=== PATIENT | female | born 1945 | race Hispanic/Latino ===

== ENCOUNTER → 2017-05-28 | Outpatient (CLI) | payer OTHER ==
[~2017-05-28] MED LIST: ALEN70TA47 PO; ASCO10007 PO; ASPI-555 PO; CHOL200074 PO; DILT120C92 PO; FERR-82 PO; LEVO100T12 PO; METF10004 PO; OMEG-96 PO; ONDA8TAB12 PO; PRAV80TA21 PO; RAMI10CA23 PO; TRAM50TA4 PO
== END | disposition home or self-care (01) ==
LOC: RAH 13:32
PROVIDERS: ATTEND Family Medicine
DX: Z12.31 Encounter for screening mammogram for malignant neoplasm of breast (principal)
CPT/HCPCS: 77067

== ENCOUNTER 2017-07-08 07:57 | Day surgery (SDC) | payer OTHER ==
[~2017-07-08] VITALS: Ht 154.9 cm; Wt 59.8 kg
[~2017-07-08 07:57] MED LIST changes: -ALEN70TA47 PO; -ASCO10007 PO; -ASPI-555 PO; -CHOL200074 PO; -DILT120C92 PO; -FERR-82 PO; -LEVO100T12 PO; -METF10004 PO; -OMEG-96 PO; -ONDA8TAB12 PO; -PRAV80TA21 PO; -RAMI10CA23 PO; +SODIUM CHLORIDE 0.9% 1000ML 1,000 ML IV ONE; -TRAM50TA4 PO
[2017-07-08 09:33] VITALS: BP 145/69
[2017-07-08] MEDS ORDERED: METF10004 PO (09:55)
[2017-07-08] MEDS ORDERED: ASCO10007 PO (09:55)
[2017-07-08] MEDS ORDERED: ONDA8TAB12 PO (09:55)
[2017-07-08] MEDS ORDERED: TRAM50TA4 PO (09:55)
[2017-07-08] MEDS ORDERED: LEVO100T12 PO (09:55)
[2017-07-08] MEDS ORDERED: FERR-82 PO (09:55)
[2017-07-08] MEDS ORDERED: RAMI10CA23 PO (09:55)
[2017-07-08] MEDS ORDERED: OMEG-96 PO (09:55)
[2017-07-08] MEDS ORDERED: ASPI-555 PO (09:55)
[2017-07-08] MEDS ORDERED: ALEN70TA47 PO (09:55)
[2017-07-08] MEDS ORDERED: CHOL200074 PO (09:55)
[2017-07-08] MEDS ORDERED: PRAV80TA21 PO (09:55)
[2017-07-08] MEDS ORDERED: DILT120C92 PO (09:55)
[2017-07-08] MEDS ORDERED: MIDAZOLAM HCL 1 MG/ML 2ML VIAL ONE (09:59)
[2017-07-08] MEDS ORDERED: MEPERIDINE-PF 50 MG/ML SYG ONE (09:59)
[2017-07-08 10:19] VITALS: BP 133/51
== END 2017-07-08 11:10 | disposition home or self-care (01) ==
LOC: DAH 07:57 → ENDO 07:57
PROVIDERS: ATTEND Internal Medicine Gastroenterology
DX: Z09 Encounter for follow-up examination after completed treatment for conditions other than malignant neoplasm (principal); K57.30 Diverticulosis of large intestine without perforation or abscess without bleeding; E11.9 Type 2 diabetes mellitus without complications; I10 Essential (primary) hypertension; E03.8 Other specified hypothyroidism; D64.89 Other specified anemias; Z86.010 Personal history of colon polyps; Z79.82 Long term (current) use of aspirin; Z79.899 Other long term (current) drug therapy; Z79.1 Long term (current) use of non-steroidal anti-inflammatories (NSAID); Z79.84 Long term (current) use of oral hypoglycemic drugs
CPT/HCPCS: 82948 ×2; A4606; G0105; J2175; J2250; J7030; 99152; 99153

== ENCOUNTER → 2018-09-21 | Outpatient (CLI) | payer OTHER ==
[~2018-09-21] MED LIST changes: +ALEN70TA10 PO; +ASCO10007 PO; +ASPI-555 PO; +CHOL200074 PO; +DILT120C92 PO; +FERR-82 PO; +LEVO100T12 PO; +METF-446 PO; +OMEG-96 PO; +ONDA8TAB12 PO; +PRAV80TA21 PO; +RAMI10CA69 PO; -SODIUM CHLORIDE 0.9% 1000ML 1,000 ML IV ONE; +TRAM50TA4 PO
== END | disposition home or self-care (01) ==
LOC: RAH 15:17
PROVIDERS: ATTEND Family Medicine
DX: Z12.31 Encounter for screening mammogram for malignant neoplasm of breast (principal)
CPT/HCPCS: 77067

== ENCOUNTER → 2019-10-20 | Outpatient (CLI) | payer OTHER ==
[~2019-10-20] MED LIST changes: +ASCO100031 PO; -ASCO10007 PO; -ASPI-555 PO; +ASPI-556 PO
== END | disposition home or self-care (01) ==
LOC: SHCH 12:41
PROVIDERS: ATTEND Internal Medicine Cardiovascular Disease
DX: I35.0 Nonrheumatic aortic (valve) stenosis (principal)
CPT/HCPCS: 93306

== ENCOUNTER → 2019-12-18 | Outpatient (CLI) | payer OTHER | END | disposition home or self-care (01) | LOC: RAH 12:32 | PROVIDERS: ATTEND Family Medicine | DX: Z12.31 Encounter for screening mammogram for malignant neoplasm of breast (principal) | CPT/HCPCS: 77067 ==

== ENCOUNTER → 2023-01-27 | Outpatient (CLI) | payer OTHER ==
[~2023-01-27] MED LIST changes: -ALEN70TA10 PO; +ALEN70TA80 PO; +DILT120C78 PO; -DILT120C92 PO
== END | disposition home or self-care (01) ==
LOC: RAH 08:54
PROVIDERS: ATTEND Family Medicine
DX: Z12.31 Encounter for screening mammogram for malignant neoplasm of breast (principal)
CPT/HCPCS: 77067

== ENCOUNTER → 2024-01-31 | Outpatient (CLI) | payer OTHER ==
[~2024-01-31] MED LIST changes: +ONDA-245 PO; -ONDA8TAB12 PO; -RAMI10CA69 PO; +RAMI10CA76 PO
== END | disposition home or self-care (01) ==
LOC: RAH 08:54
PROVIDERS: ATTEND Family Medicine
DX: Z12.31 Encounter for screening mammogram for malignant neoplasm of breast (principal); R92.323 Mammographic fibroglandular density, bilateral breasts
CPT/HCPCS: 77067